=== PATIENT | female | born 1970 | race Caucasian/White ===

== ENCOUNTER 2016-04-23 11:02 | Emergency (ER) | payer BC ==
[~2016-04-23] VITALS: Ht 167.6 cm; Wt 135.6 kg
[2016-04-23 12:47] LABS: HEMATOCRIT 42.6 % (36.0-46.0); MCH 28.9 PG (29.0-34.0); MCHC 33.6 G/DL (30.0-36.0); MCV 86.1 FL (83-99); MEAN PLAT.VOLUME 9.7 uM^3 (9.5-12.4); PLATELET COUNT 312 K/uL (156-360); RBC DIS.WIDTH-CV 13.6 % (11.8-14.6); RBC DIS.WIDTH-SD 42.2 % (39-53); RED BLOOD COUNT 4.95 M/uL (3.80-5.20)
[2016-04-23 12:58] LABS: CHLORIDE 105 mEq/L (99-109); POTASSIUM 3.7 mEq/L (3.7-5.4); SODIUM 141 mEq/L (136-147)
[2016-04-23 13:00] LABS: GLUCOSE 88 mg/dL (70-99)
[2016-04-23 13:01] LABS: ANION GAP 11 MEQ/L (2-14)
[2016-04-23 13:02] LABS: TOTAL BILIRUBIN 0.6 mg/dL (0.0-1.0)
[2016-04-23 13:03] LABS: ALKALINE PHOSPHATASE 64 IU/L (3-129)
[2016-04-23 13:04] LABS: GFR ESTIMATE (CALCULATED) > 59 mL/min/
[2016-04-23 13:05] LABS: UREA NITROGEN (BUN) 12 mg/dL (9-23)
[2016-04-23 15:29] LABS: ADD MIUA? YES; BILIRUBIN NEGATIVE; BLOOD SMALL; COLOR COLORLESS ((YELLOW)); GLUCOSE (STRIP) NEGATIVE; KETONES NEGATIVE; LEUKOCYTES NEGATIVE; NITRITE NEGATIVE; PROTEIN (STRIP) NEGATIVE; SPECIFIC GRAVITY 1.003 (1.000-1.030); UROBILINOGEN 0.2 MG/DL (0.2-1.0)
[2016-04-23 15:42] LABS: BACTERIA 3+ /HPF; EPITHELIAL CELLS RARE /HPF; MUCUS NONE SEEN /LPF; RED BLOOD CELLS 0-5 /HPF (0-5); WHITE BLOOD CELLS 0-5 /HPF (0-5)
[2016-04-23 17:16] VITALS: BP 126/80
== END 2016-04-23 17:16 | disposition home or self-care (01) ==
LOC: EME 11:02
PROVIDERS: Emergency Medicine
DX: I10 Essential (primary) hypertension (principal); Z87.891 Personal history of nicotine dependence
CPT/HCPCS: 71020; 80053; 81003; 85027; 99281; 99285